=== PATIENT | female | born 1965 | race Caucasian/White ===

== ENCOUNTER 2022-02-21 12:13 | Observation (INO) ==
--- NOTE | 2022-02-20 08:17 | Anesthesiology Consultation ---
Date of Service February 20, 2022 Assessment & Plan (1) Encounter for pre-operative examination: - COVID screening: Per assessment on 02/19: No known COVID-19 positive contacts or current COVID-19 related symptoms. Travel screen negative. Patient vaccinated. At surgeon discretion if preop Covid testing being done. - Check BSG AM DOS Chart Review Chart Review: Acceptable Risk for Surgery and Patient NOT seen in Pre Admission Testing History Surgery Operation Date: 02/21/22 13:45 Proposed Procedures p Cystoscopy, Bilateral Ureteronephroscopy, Bilateral Retrograde Pyelogram with Possible Ureteral Dilation, Laser Destruction or Extraction of the Stone, Insertion or Exchange of Bilateral Stent Catheter(Bilateral) - Marquez Mendoza MD Height/Weight Height: 5 ft 3 in Weight: 71.214 kg Allergies Allergy/AdvReac Type Severity Reaction Status Date / Time erythromycin base AdvReac Intermediate NAUSEA Verified 02/21/22 12:45 VOMITING Medications Home Medications Medication Instructions Recorded Confirmed Last Taken L.acidophil-L.casei-B.bifid-B.longum-FOS 1 cap PO QPM 02/19/22 02/21/22 02/18/22 18:00 2 billion cell-50 mg capsule (Probiotic Blend) biotin 10 mg tablet 10 mg PO BID 02/19/22 02/21/22 02/19/22 08:00 cetirizine 10 mg tablet (Zyrtec) 10 mg PO QPM 02/19/22 02/21/22 02/20/22 18:00 cholecalciferol (vitamin D3) 25 25 mcg PO BID 02/19/22 02/21/22 02/19/22 08:00 mcg (1,000 unit) tablet (Vitamin D3) metformin 500 mg tablet 500 mg PO BID 02/19/22 02/21/22 02/20/22 18:00 metoprolol succinate 50 mg 50 mg PO HS 02/19/22 02/21/22 02/20/22 23:45 tablet,extended release 24 hr naproxen sodium 220 mg tablet 440 mg PO BID 02/19/22 02/21/22 02/20/22 23:45 (Aleve) ramipril 10 mg tablet 10 mg PO QAM 02/19/22 02/21/22 02/20/22 08:00 simvastatin 40 mg tablet 40 mg PO HS 02/19/22 02/21/22 02/20/22 23:45 Active Medications Generic Name Dose Route Start Last Admin Trade Name Bret PRN Reason Stop Dose Admin Lactated Ringer's 1,000 mls @ 15 mls/hr 02/21/22 06:00 02/21/22 12:45 Lr IV 02/22/22 05:59 15 mls/hr .Q24H CRISTIN Administration Past Medical History Medical History Bilateral ureteral calculi Diabetes mellitus, type 2 NIDDM History of COVID-19 diagnosed 10/30/21 via home test--mild symptoms, no symptoms now Hyperlipidemia Hypertension Nausea and vomiting after administration of anesthetic agent Past Family History Family History Other No family history of adverse response to anesthesia Past Surgical History Surgical History History of colonoscopy History of hysterectomy (~09/2015) with cystocele/rectocele repair History of laparoscopic cholecystectomy History of right salpingo-oophorectomy (~2016) with bladder sling/mesh History of wisdom tooth extraction Social History Smoking Status: Never smoker Do You Dip or Chew Tobacco: No Hx Alcohol Use: No Hx Substance Use: No substance use type: does not use Physical Exam Vital Signs Last Vital Signs Temp 36.7 C 02/21/22 12:38 Pulse 85 02/21/22 12:38 Resp 20 02/21/22 12:38 Pulse Ox 98 02/21/22 12:38 O2 Del Method 02/21/22 12:38 Lab Results Anesthesia Preop Results Results Anesthesia Widget: WBC 8.23 K/ul (4.8-10.8) 02/21/22 Hgb 13.2 g/dl (12.0-16.0) 02/21/22 Hct 39.1 % (34.1-44.9) 02/21/22 Plt 290 K/uL (130-400) 02/21/22 Na 140 mmol/L (136-145) 02/18/22 K 3.6 mmol/L (3.5-5.1) 02/18/22 Cl 105 mmol/L (98-107) 02/18/22 CO2 25 mmol/L (21-32) 02/18/22 BUN 18 mg/dl (6-23) 02/18/22 Creat 0.86 mg/dl (0.6-1.2) 02/18/22 Glucose Level 149 mg/dl (70-99(Fasting)) H 02/18/22 POC Glucose 151 mg/dl (70-99) H 02/21/22 Testing Laboratory Results 02/21/22 12:42 02/21/22 12:43 POC Glucose 151 H 02/18/22 UA negative nitrite/leuk est, + blood Electrocardiogram Date: 02/18/22 Findings: + NSR @ (80)
[~2022-02-21 12:13] MED LIST: LR 15ML/HR IV SCH; ceFAZolin 2000MG 2,000 MG/15 ML SYR IV SCH
--- NOTE | 2022-02-21 12:36 | XRay Report ---
XR chest 2V PA/lateral CLINICAL HISTORY: preop TECHNIQUE: 2 views of the chest were obtained. Comparison: Comparison is made to chest radiograph 09/15/2015 FINDINGS: No lines and tubes are seen. The cardiomediastinal silhouette is normal. The lungs are clear. No evid ence of pleural effusion or pneumothorax. IMPRESSION: No acute chest disease. ACT 112: Negative or not required by law. Electronically signed by: Gian Blount M.D. 02/21/2022 12:35 PM
[2022-02-21 13:01] LABS: Basophils # (auto) 0.04 K/uL (0-0.2); Basophils % (auto) 0.5 %; Eosinophils # (auto) 0.14 K/uL (0-0.50); Eosinophils % (auto) 1.7 %; Hematocrit (blood only) 39.1 % (34.1-44.9); Hemoglobin 13.2 g/dl (12.0-16.0); Immature Granulocytes # (auto) 0.06 K/uL (0.00-0.02); Immature Granulocytes % (auto) 0.7 %; Lymphocytes # (auto) 3.08 K/uL (1.2-3.4); Lymphocytes % (auto) 37.4 %; Mean Corpuscular Hemoglobin 28.7 pg (25.0-34.0); Mean Corpuscular Hgb Conc 33.8 g/dL (32.0-36.0); Mean Platelet Volume 10.6 fL (9.4-12.3); Monocytes # (auto) 0.55 K/uL (0.24-0.82); Monocytes % (auto) 6.7 %; Neutrophils # (auto) 4.36 K/uL (1.4-6.5); Platelet Count 290 K/uL (130-400); RDW Standard Deviation 36.4 fL (36.4-46.3); White Blood Count 8.23 K/ul (4.8-10.8)
[2022-02-21] MEDS ORDERED: HYDROmorphone INJ 1 MG/ML SYRINGE IV PRN (13:32)
[2022-02-21] MEDS ORDERED: ONDANSETRON INJ 2 MG/ML 2 ML VIAL IV PRN ×2 (13:32→17:23)
[2022-02-21] MEDS ORDERED: ePHEDrine sulfate 50 MG/ML AMP IV PRN (13:32)
[2022-02-21] MEDS ORDERED: ATROPINE SULFATE 0.1 MG/ML 10ML SYR IV PRN (13:32)
[2022-02-21] MEDS ORDERED: fentaNYL citrate 100 MCG/2 ML VIAL IV PRN (13:32)
--- NOTE | 2022-02-21 13:42 | History & Physical Bridge Note ---
Date of Service February 21, 2022 History & Physical Bridge Note I have examined the patient, reviewed the History & Physical and in the interval since the performance of the History & Physical I have noted the following changes of clinical significance: no changes noted
[2022-02-21] MEDS ORDERED: MIDAZOLAM HCL 1 MG/ML 2ML VIAL ONE (13:50)
[2022-02-21] MEDS ORDERED: fentaNYL citrate 100 MCG/2 ML VIAL ONE (13:50)
[2022-02-21] MEDS ORDERED: KETOROLAC 30 MG/ML VIAL ONE (13:51)
[2022-02-21] MEDS ORDERED: DEXAMETHASONE SOD INJ 4 MG/ML VIAL ONE ×2 (13:51→14:20)
[2022-02-21] MEDS ORDERED: ONDANSETRON INJ 2 MG/ML 2 ML VIAL ONE ×2 (13:51→14:27)
[2022-02-21] MEDS ORDERED: LIDOCAINE 2% MPF LOCAL 5 ML VIAL INFIL ONE (13:51)
[2022-02-21] MEDS ORDERED: PROPOFOL IV EMULSION 10 MG/ML 20 ML VIAL IV ONE ×5 (13:51→14:50)
[2022-02-21] MEDS ORDERED: LIDOCAINE VISCOUS 2% 100ML BOTTLE ONE (14:33)
[2022-02-21] MEDS ORDERED: PHENYLEPHRINE HCL 10 MG/ML VIAL ONE (14:36)
--- NOTE | 2022-02-21 15:05 | Post Operative Brief Note ---
PG Immediate Post Op with CF Date of Surgery February 21, 2022 Pre & Post Diagnosis Operation Date: 02/21/22 13:45 Pre-Op Diagnosis: Bilateral ureteral calculi Post-Op Diagnosis: Bilateral ureteral calculi I identified the patient and participated in the time-out.: Yes Procedure Operation Date: 02/21/22 13:45 Actual Procedures p Cystoscopy, Bilateral Ureteronephroscopy, Bilateral Retrograde Pyelogram, left ureteral stent placement, attempted right ureteral stent placement - Marquez Mendoza MD Surgeon Marquez Mendoza MD Air Saw Operator None Estimated Blood Loss 5 Findings See Below Left retrograde pyelogram showed moderate hydronephrosis. Stent placed without difficulty. Large right proximal ureteral calculus did not allow any contrast past by it. Unable to get multiple wires passed, even under direct visualization with the ureteroscope Case ended when there was noted extravasation of urine in the proximal ureter Drains Other (Left 6x24 stent ) Complications none
[2022-02-21] MEDS ORDERED: DIATRIZOATE MEGLUMINE 30% 100ML VIAL INSTIL PRN (15:11)
[2022-02-21] MEDS ORDERED: LABETALOL HCL IV 5 MG/ML 20ML IV ONE (15:39)
[2022-02-21] MEDS ORDERED: LABETALOL HCL IV 5 MG/ML 20ML IV STA (15:46)
[2022-02-21] MEDS ORDERED: LABETALOL HCL IV 5 MG/ML 20ML IV PRN (15:56)
--- NOTE | 2022-02-21 15:58 | Fluoroscopy Report ---
FL retrograde includes kub CLINICAL HISTORY: BILATERAL RETROGRADE/LASER LITHO AND STENT INSERTIONS COMPARISON STUDY: None. FLUOROSCOPY TIME: 74 seconds. FINDINGS: 6 fluoroscopic spot images of the abdomen and pelvis demonstrate retrograde opacities of th e bilateral renal collecting systems followed by placement of a left ureteral stent. Only the proxima l portion of the left ureteral stent is identified and appears in good position. Multiple filling def ects seen within the irregular appearing right renal collecting system and proximal right ureter. IMPRESSION: Fluoroscopic assistance for bilateral retrograde pyelogram as described above. ACT 112: Negative or not required by law. Electronically signed by: Jag Velez M.D. 02/21/2022 3:56 PM
[2022-02-21] MEDS ORDERED: oxyCODONE HCL IR 5 MG TAB (IMMEDIATE RELEASE) PO PRN ×2 (16:11)
[2022-02-21] MEDS ORDERED: MoRPHine SULFATE 4 MG/ML 1 ML CARP\\VIAL IV PRN (16:11)
[2022-02-21] MEDS ORDERED: MoRPHine SULFATE 2 MG/ML CARP IV PRN (16:11)
--- NOTE | 2022-02-21 16:20 | Anesthesiology Progress Note ---
Date of Service February 21, 2022 Anesthesia Post Procedure Vital Signs Vital Signs: Temp Pulse Pulse Resp BP Pulse Ox O2 Del Method 02/21/22 16:10 36.2 C L 75 18 169/97 H 97 Room Air 02/21/22 16:00 74 12 165/98 H 98 Room Air 02/21/22 15:40 87 10 L 164/108 H 98 Oxymask 02/21/22 15:50 79 13 169/101 H 96 Room Air 02/21/22 15:30 94 H 17 167/107 H 96 Oxymask 02/21/22 15:21 36.2 C L 96 H 11 L 145/100 H 98 Oxymask 02/21/22 12:38 36.7 C 85 20 98 Room Air O2 Flow Rate 02/21/22 16:10 02/21/22 16:00 02/21/22 15:40 4 02/21/22 15:50 02/21/22 15:30 6 02/21/22 15:21 10 02/21/22 12:38 Pain Intensity Left Flank: Pain Intensity: 3 Transfer of Care Handoff Completed per policy Notes Mental Status: alert / awake / arousable and participated in evaluation Patient Amnestic to Procedure: Yes Nausea / Vomiting: adequately controlled Pain: adequately controlled Airway Patency, RR, SpO2: stable & adequate BP & HR: stable & adequate Hydration State: stable & adequate Anesthetic Complications: no major complications apparent and Pt Satisfied with anesthetic care
--- NOTE | 2022-02-21 16:38 | Operative Report ---
PG Post Operative Report Pre & Post Diagnosis Operation Date: 02/21/22 13:45 Pre-Op Diagnosis: Bilateral ureteral calculi Post-Op Diagnosis: Bilateral ureteral calculi I identified the patient and participated in the time-out.: Yes Procedure Operation Date: 02/21/22 13:45 Actual Procedures Cystoscopy, bilateral retrograde pyelogram with radiographic interpretation, left ureteral stent placement, right ureteroscopy and attempted right ureteral stent placement - Marquez Mendoza MD Surgeon Marquez Mendoza MD Cra Officer None Estimated Blood Loss 5 Findings See Below Normal urethra and bladder Left retrograde pyelogram showed moderate to significant hydronephrosis. Stent in appropriate position Right proximal ureteral calculus did not allow any contrast to pass by it on retrograde. Numerous attempts were made with sensor wires and glide wires to get past the stone. As we do not have interventional radiology, ureteroscopy was performed with attempted direct visualization and passage of wire which was unsuccessful Contrast extravasation of right proximal ureter noted at end of case and case was terminated Specimens None Drains 6 Angolan by 24 cm left ureteral stent Anesthesia Type General Complications none Right ureteral perforation Indications 57-year-old female who was referred to my clinic for bilateral obstructing ureteral calculi. Several days had passed and she was seen in an outside emergency department and she was afebrile and pain was well controlled. Labs showed a creatinine of 0.86. Preop urine culture grew mixed courtney. I had along discussion with her preoperatively that this first procedure would likely be just bilateral stent placement and that there was a risk that we were unable to place a stent due to the size of the stones and then she would need a nephrostomy tube at another hospital. Description of Procedure After informed consent was obtained, the patient was transported to the operative suite. General anesthesia was induced. They were placed in dorsal lithotomy position and prepped and draped in sterile fashion. They received preoperative Ancef. An appropriate surgical timeout was performed. A 22 Angolan rigid cystoscope was inserted per urethra into the bladder. I turned my attention to the right ureteral orifice and intubated this with a 5 Angolan open-ended catheter. I shot a right retrograde pyelogram which did not show any contrast passing by the large proximal ureteral calculus. I then attempted to advance a sensor wire past the stone numerous times but was unsuccessful. I swapped out to a zip wire and was still unable to get the wire past the stone. At this time I opted to turn my attention to the left sided stone and get a stent in place before trying further on the right. I turned my attention the left ureteral orifice and intubated this with a 5 Angolan open-ended catheter. I shot a left retrograde pyelogram with the above- noted findings. A sensor wire was advanced into the upper pole of the kidney. I then deployed a 6 Angolan by 24 cm left ureteral stent with a good proximal coil in the renal pelvis noted fluoroscopically and a good distal coil noted under direct visualization in the bladder. I then turned my attention back to the right ureteral orifice. I advanced a sensor wire to the level of the stone. As we do not have interventional radiology here, I elected to performed a right ureteroscopy to attempt to get a wire past the stone under direct visualization for stent placement. I was able to advance the scope to the level of the stone, which was noted to be severely impacted. There was tortuosity of the ureter just proximal to the stone. Under direct visualization, I attempted to pass both a sensor and a zip wire unsuccessfully. I entertained the idea of trying to laser past the stone just to get a wire in place for stent placement but did not feel that this would be safe and opted not to do so. I removed the flexible ureteroscope and advanced a 5 Angolan open-ended catheter over the wire that was sitting at the level of the stone. A mixture of viscous jelly and dye was injected to see if this would help facilitate passage of the wire. I again attempted to pass a sensor and a zip wire unsuccessfully. I shot a retrograde pyelogram at this time and did note some extravasation of dye that was concerning for perforation. I opted to stop the procedure at this time. The bladder was emptied and the scope was removed. All counts correct at the end of the case. I was present scrubbed and actively participated for the entire to the procedure. I checked on the patient postoperatively and spoke with both her and her . We will plan for observation overnight. I reached out to [facility] for an outpatient interventional radiology nephrostomy tube placement early next week. If she remains stable tomorrow we likely can perform this as an outpatient. If pain were to develop or any concerns for infection arise, I discussed transferring her to [place] or [facility] for an urgent nephrostomy tube. Both her and her were agreeable. I attest to the content of the Intraoperative Record and any orders documented therein. Any exceptions are noted below.
[2022-02-21] MEDS ORDERED: PHARMACY GLYCEMIC MGMT CONSULT PRN (16:55)
[2022-02-21] MEDS ORDERED: METOPROLOL SUCC 50MG EXT REL TAB PO STA (17:13)
[2022-02-21] MEDS ORDERED: hydrALAZINE HCL 20 MG/ML VIAL IV PRN (17:23)
[2022-02-21] MEDS ORDERED: GLUCOSE 10 TAB/TUBE PO PRN (17:30)
[2022-02-21] MEDS ORDERED: GLUCOSE 40% GEL 15 GM TUBE PO PRN (17:30)
[2022-02-21] MEDS ORDERED: CARBOHYDRATES FOR HYPOGLYCEMIA PO PRN (17:30)
[2022-02-21] MEDS ORDERED: DEXTROSE 50% 50 ML SYRINGE IV PRN (17:30)
[2022-02-21] MEDS ORDERED: GLUCAGON FOR INJ 1 MG VIAL IM PRN (17:30)
--- NOTE | 2022-02-21 17:44 | Pharmacy Report ---
Pharmacy Glycemic Short Note 2 - Date of Service February 21, 2022 - Glycemic Short BSG Results (Last 24 hours): 02/21/22 02/21/22 12:43 15:27 POC Glucose 151 H 134 H OUTPATIENT ANTIDIABETIC REGIMEN: * Metformin 500 mg PO BIDM * HbA1c pending ASSESSMENT: * 57 yo F admitted today postoperatively following ureteronephroscopy. Pharmacy has been consulted to assist with inpatient glycemic management. Patient is a type 2 diabetic managed with metformin monotherapy at home. A clear liquid diet has been ordered. Appears the patient received 8 mg of IV dexamethasone perioperatively. * BSGs have been 151 and 134 mg/dL. Will hold off on any basal insulin. Starting Novolog based on weight/stress of 2. Can likely transition back to orals and sign off tomorrow pending no further stressors added. PLAN FOR INPATIENT GLYCEMIC CONTROL: * Hold outpatient oral diabetes medications * Basal insulin * None * Bolus insulin * NovoLog per scale ACHS or Q6hrs while NPO * Goal Range: Low 110 mg/dL - High 140 mg/dL * Correction Factor: 30 mg/dL/unit * Nutritional / Prandial insulin per carb ratio of 1 unit per 10 grams CHO consumed
[2022-02-21] MEDS: ceFAZolin 1000MG 1,000 MG/7.5 ML SYR IV SCH (18:20)
[2022-02-21] MEDS: CHOLECALCIFEROL 1,000 UNITS 25 MCG TAB PO SCH (20:19)
[2022-02-21] MEDS ORDERED: ADVANCED PROBIOTIC 1250 MG CAPSULE PO SCH (21:00)
[2022-02-21] MEDS ORDERED: CETIRIZINE HCL 10 MG TABLET PO SCH (21:00)
[2022-02-21] MEDS ORDERED: METOPROLOL SUCC 50MG EXT REL TAB PO SCH (21:00)
[2022-02-21] MEDS ORDERED: SIMVASTATIN 40 MG TAB PO SCH (21:00)
[2022-02-21] MEDS: ACETAMINOPHEN 325 MG TAB PO PRN (21:35)
[2022-02-21] MEDS: INSULIN ASPART PER UNIT SC SCH ×2 (21:36)
[2022-02-22] MEDS: ceFAZolin 1000MG 1,000 MG/7.5 ML SYR IV SCH (01:10)
[2022-02-22] MEDS: ACETAMINOPHEN 325 MG TAB PO PRN ×2 (03:08→11:14)
--- NOTE | 2022-02-22 08:00 | Urology Progress Note ---
Date of Service February 22, 2022 Assessment & Plan (1) Bilateral ureteral calculi: Plan 57-year-old female with bilateral obstructing ureteral calculi who is status post cystoscopy, bilateral retrograde pyelogram, left ureteral stent placement and attempted right ureteral stent placement Afebrile, stable vitals and pain well controlled Follow-up morning labs Patient likely stable for discharge home later this morning. Discussed things to look out for including but not limited to pain and fevers. Hopefully we will schedule outpatient right nephrostomy tube placement next Friday with [facility]. Spoke with them yesterday and will fax over results today. We will then see patient back to discuss stone treatment when she is probably drained bilaterally We will send her home with Flomax, Ditropan and prophylactic antibiotics Admission and Anticipated Discharge Date Admission Date: February 21, 2022 Subjective No acute issues overnight. Afebrile with stable vitals. Denies any flank pain. Observed overnight due to inability to place right ureteral stent yesterday due to large obstructing stone. Successfully placed left ureteral stent. Review of Systems Review of Systems: 14 point review of systems negative outside of what is listed above in HPI Physical Exam Physical Exam: General: Alert and oriented, no acute distress HEENT: Normocephalic, mucous membranes moist Pulmonary: Nonlabored respirations Abdomen: Nondistended Extremities: Moves all 4 spontaneously Neuro: No gross deficits Skin: Warm, dry, no rashes noted Results & Data ([facility]) Vital Signs (Past 12 Hours) Vital Signs Temp Pulse Resp BP Pulse Ox O2 Del Method 02/22/22 07:42 36.4 C L 81 16 164/101 H 96 02/22/22 03:17 36.4 C L 66 18 156/89 H 97 Room Air 02/21/22 23:17 36.4 C L 76 16 145/84 H 95 Room Air PG Care Time/CCT Total # of Minutes Spent Total Time Spent with Patient: Total time spent is greater than 50% in coordination of care (as documented) at patient's floor/unit and/or counseling patient: Coding Level of Care Code 77890 Subseq Hosp Care Lvl 2 Diagnoses Bilateral ureteral calculi N20.1
--- NOTE | 2022-02-22 08:12 | Discharge Summary ---
Date of Service February 22, 2022 Admission HPI Per Admitting Provider 57-year-old female referred to me for kidney stones. I dependently reviewed an outside CT scan report from 02/13/2022 which shows bilateral obstructive ureteral calculi. There is a 9 mm stone in the mid left ureter and an 11 mm stone at the right UPJ. She fortunately is fairly asymptomatic today. She is making urine which indicates she does not have true bilateral obstruction. She does have a history of kidney stones but has not had any previous urologic procedures. She does have a history of diabetes. She denies any smoking history. No family history of kidney stones in her family. Principal Diagnosis Bilateral ureteral calculi Discharge Exam General: Alert and oriented, no acute distress HEENT: Normocephalic, mucous membranes moist Pulmonary: Nonlabored respirations Abdomen: Nondistended Extremities: Moves all 4 spontaneously Neuro: No gross deficits Skin: Warm, dry, no rashes noted Discharge Data Allergies Allergy/AdvReac Type Severity Reaction Status Date / Time erythromycin base AdvReac Intermediate NAUSEA Verified 02/21/22 12:45 VOMITING Procedures Performed Operation Date: 02/21/22 13:45 Actual Procedures p Bilateral Ureteronephroscopy, Bilateral Retrograde Pyelogram,(Bilateral) - Marquez Mendoza MD s Cystoscopy - Marquez Mendoza MD s Insertion Left Ureteral Stent and Attempted Right Stent Placement(Bilateral) - Marquez Mendoza MD Ordered Studies 02/21/22 13:45 FL retrograde includes kub Routine Hospital Course (1) Bilateral ureteral calculi: Plan Patient underwent the above-noted procedure on 02/21/2022. Successful left ureteral stent placement however was unable to place right ureteral stent due to complete obstruction from right proximal ureteral calculus. Admitted patient overnight for observation in the event that she would need transfer for nephrostomy tube. She was stable and we will therefore plan for elective outpatient nephrostomy tube placement next week. Patient was afebrile with stable vitals and deemed medically safe for discharge on 02/22/2022. Total Time Total Time Spent Total Time Spent (In Minutes): 10 minutes Discharge Plan Discharge Items Patient Disposition: Home - Self-Care Reason For Visit: Bilateral Ureteral Calcium Discharge Diagnosis: Bilateral ureteral calculi Activity: Resume your previous activity Lifting: Gradually increase as tolerated Bathing: No limitations Sexual Activity: When tolerated Exercise/Sports: Gradually increase as tolerated Driving/Machine Use: No limitations Weightbearing: Full weightbearing Non-emergency contact: Urologist Call non-emergency contact if: you have any medication questions, your pain is worsening and your temperature is above 101 Follow-up/Referrals: Kd Dodson MD [Primary Care Provider] - Diet: Regular Addtl Attending Provider Instructions: Take Tylenol and ibuprofen as needed for pain. Continue taking Flomax as this can help with stent discomfort. Oxybutynin as needed, however this can cause dry mouth, constipation and difficulty urinating so only use when necessary. Take colace as needed to prevent constipation It is normal to have blood in his urine while the stent is in place. The more activity perform, the bloody or your urine will be. This is okay as long as you are able to urinate. You will be called regarding a follow-up appointment to determine stone treat ment. You will also be called regarding an appointment for a nephrostomy tube placement on your right side. Call with worsening right flank pain or fevers Pending Studies at Discharge: No Stand-Alone Forms: My [facility], Smoking Cessation Medications and DC Order Prescriptions: New tamsulosin [Flomax] 0.4 mg capsule 0.4 mg PO DAILY Qty: 30 0RF docusate sodium [Col-Rite] 100 mg capsule 100 mg PO BID Qty: 20 0RF oxybutynin chloride [Ditropan XL] 5 mg tablet extended release 24hr 5 mg PO DAILY Qty: 30 0RF sulfamethoxazole-trimethoprim [Bactrim DS] 800-160 mg tablet 1 tab PO BID 7 Days Qty: 14 0RF Continued biotin 10 mg Tablet 10 mg PO BID metformin 500 mg Tablet 500 mg PO BID cetirizine [Zyrtec] 10 mg Tablet 10 mg PO QPM metoprolol succinate 50 mg Tablet Extended Release 24 Hr 50 mg PO HS simvastatin 40 mg Tablet 40 mg PO HS cholecalciferol (vitamin D3) [Vitamin D3] 25 mcg (1,000 unit) Tablet 25 mcg PO BID ramipril 10 mg Tablet 10 mg PO QAM Probiotic Blend 2 billion cell-50 mg Capsule 1 cap PO QPM Rx Instructions: give with meal/snack naproxen sodium [Aleve] 220 mg Tablet 440 mg PO BID Discharge Orders: Discharge Order (Routine); Ordered 02/22/22 Ordered By: Maris Nicholson/Other Patient Handouts: Understanding Kidney Stones, Treating Kidney Stones: Medicines, Preventing Kidney Stones Admission Data Admit Date/Time: 02/21/22 15:51 Attending Provider: Marquez Mendoza Admit Provider: Marquez Mendoza Primary Care Provider: Kd Dodson Other Interventions: Discharge Summary Assessment (RN) Last Done: 02/22/22 11:23 Coding Level of Care Code D/C DAY MANAGEMENT <30 MINS Diagnoses Bilateral ureteral calculi N20.1
[2022-02-22] MEDS: CHOLECALCIFEROL 1,000 UNITS 25 MCG TAB PO SCH (08:33)
[2022-02-22] MEDS ORDERED: ENALAPRIL MALEATE 10 MG TAB PO SCH (09:00)
[2022-02-22] MEDS: INSULIN ASPART PER UNIT SC SCH (09:14)
[2022-02-22 09:52] LABS: Basophils # (auto) 0.02 K/uL (0-0.2); Basophils % (auto) 0.1 %; Hematocrit (blood only) 36.1 % (34.1-44.9); Hemoglobin 12.5 g/dl (12.0-16.0); Immature Granulocytes # (auto) 0.16 K/uL (0.00-0.02); Lymphocytes # (auto) 2.29 K/uL (1.2-3.4); Lymphocytes % (auto) 14.1 %; Mean Corpuscular Hemoglobin 29.1 pg (25.0-34.0); Mean Corpuscular Hgb Conc 34.6 g/dL (32.0-36.0); Mean Platelet Volume 10.8 fL (9.4-12.3); Monocytes # (auto) 0.78 K/uL (0.24-0.82); Monocytes % (auto) 4.8 %; Neutrophils # (auto) 13.03 K/uL (1.4-6.5); Platelet Count 333 K/uL (130-400); RDW Coefficient of Variation 12.1 % (11.5-14.5); RDW Standard Deviation 36.6 fL (36.4-46.3); White Blood Count 16.28 K/ul (4.8-10.8)
[2022-02-22 10:21] LABS: BUN Creatinine Ratio 20.3 (10-20); Calcium 9.5 mg/dl (8.5-10.1); Creatinine Clr Calc Pharmacy 74.3 ml/min; Est GFR (African American) 96.3 ml/min; Est GFR (Non-African American) 83.1 ml/min; Potassium 3.7 mmol/L (3.5-5.1)
[2022-02-22 10:24] LABS: Estimated Average Glucose 169 mg/dl; Hemoglobin A1C 7.5 % (4.5-5.6)
== END 2022-02-22 12:00 | disposition home or self-care (01) ==
LOC: ASU 12:13 → 3N 15:51 → INTOOBSV 15:51